=== PATIENT | female | born 1985 | race Caucasian/White ===

== ENCOUNTER 2017-07-11 08:35 | Inpatient (IN) | payer OTHER, SELFPAY ==
[2017-07-11 08:37] VITALS: BMI 31.7
[2017-07-11] MEDS: Lactated Ringers 1,000 ML 50 ML IV ×2 (09:10→17:40)
[2017-07-11] MEDS: Oxytocin 30 units/NS 500 ml 30 UNITS/500 ML IV.SOLN IV (09:30)
[2017-07-11 09:41] LABS: Hematocrit 38.1 % (37-47); Hemoglobin 13.4 g/dl (12.0-15.0); Mean Corp Hgb Conc 35.2 g/gl (32-36); Mean Corpuscular Hgb 32.8 pg (27.0-32.0); Mean Corpuscular Volume 93.2 fL (81-99); Mean Platelet Vol. 11.3 fl (6.2-12.0); Platelet Count 149 K/mm3 (150-450); RBC Distribution Width CV 13.7 % (11.6-14.6); RBC Distribution Width SD 45.3 fl (35.1-43.9); Red Blood Count 4.09 M/mm3 (4.2-5.4); White Blood Count 8.4 K/mm3 (4.4-11.0)
[2017-07-11 09:50] LABS: Scan Indicated on CBC? Y/N NO
--- NOTE | 2017-07-11 12:34 | PCM.PN.BLA ---
Progress Note LABOR PROGRESS NOTE. 40 6/7 wk induction Feeling some UCs. AVSS pitocin at 10 mIU/min EFM 120-130s with accels category I tracing UCs q 1 - 6 mins, most q 3-4 min CX: 2/50/-2 to -3 but vtx well applied to cervix. AROM Clear fluid A/P 40 6/7 wk induction of labor postdates. Continue pitocin and watch progress, descent.
--- NOTE | 2017-07-11 16:48 | PCM.PN.BLA ---
Progress Note Induction 40 6/7 wk EGA Uncomfortable. Wants to wait until 5 cm to see about pain meds. 120-130s qvg variability. Accels category I tracing overall, but intermittent variable decelerations noted. Some with intermittent bulk picker. Some lasting 45 sec or so. UCs q 2-3 mins CX: / high. (needs to rotate) A/P; induction 40 6/7 wk Continue induction. declines pain med for now, but plans to consider at 5 cm.
--- NOTE | 2017-07-11 16:57 | PN_ITS ---
Progress Note Induction 40 6/7 wk EGA Uncomfortable. Wants to wait until 5 cm to see about pain meds. 120-130s qvg variability. Accels category I tracing overall, but intermittent variable decelerations noted. Some with intermittent machine operator hop picker. Some lasting 45 sec or so. UCs q 2-3 mins CX: / high. (needs to rotate) A/P; induction 40 6/7 wk Continue induction. declines pain med for now, but plans to consider at 5 cm.
[2017-07-11] MEDS: Oxytocin 30 units/NS 500 ml 30 UNITS/500 ML IV.SOLN 334 UNITS IV (20:10)
--- NOTE | 2017-07-11 20:18 | PCM.OB.VAG ---
Vaginal Delivery Maternal Presentation: Medically Indicated Induction 40 6/7 wk induction postdates Method of Induction: Pitocin, Amniotomy Medical Reason for Induction: Post term Amniotic Membrane Rupture Type: Artificial Amniotic Fluid Description: Clear Final PATY: 07/05/17 Final PATY Source: US <20 weeks Gestational age: 40 Weeks and 6 Days Date of Procedure: 07/11/17 Pre-Operative Diagnosis: 40 6/7 wk EGA Post-Operative Diagnosis: same Surgery/ Procedure Performed: Spontaneous Vaginal Delivery Type of Anesthesia: Epidural Description of Procedure: of a patricia viable male over intact perineum. Head delivered OA. Op and nares bulb suctioned on prineum. Nuchal cord x two reduced. Shoulders delivered easily. Vigorous infant to maternal abdomen. Spont cry. Cord clamped x two and cut. Routine venous cord gas collected and cord blood for typing. PP exam; 1st deg vaginal laceration, repaired to hemostatic, intact with 3-0 Vicryl No other lacerations noted. Placenta delivered by spont expulsion, expression. 3V cord normal appearing and intact. EBL 300cc [employer] counts correct x two Pt and tolerated delivery well. To recovery, stable condition. Presentation: Vertex, MILADYS Placental Delivery Description: Spontaneous, Expressed Placenta Disposition: [facility] Cord Vessel Description: 3 Vessels Cord Gases drawn per routine: VBG Cord Entanglement: Around neck x 2, loose Drain: Sahu to straight drain Estimated Blood Loss: 300 A gender: Male (1 minute): 8 (5 minute): 9 Episiotomy Description: None Laceration: Vaginal Extension/lac, 1st degree - repaired with single vicryl rapide fig of 8 stitch. No other lacerations. Medications given after delivery: IV Pitocin Complications: None
--- NOTE | 2017-07-11 20:25 | PCM.DCVAG ---
Discharge Diet: No Restrictions Discharge Activity: May Shower, May Take a Tub Bath May resume sexual activity in: 4-6 weeks Additional Activity Instructions:: Nothing in the vagina for 4-6 weeks. You may return to work/school in 6 weeks. Additional Instructions: If you experience any of the following, contact your healthcare provider. Bleeding that soaks a pad every hour for 2 hours Fever 100.4 or higher Unrelieved abdominal pain Problems urinating (including inability to urinate or burning while urinating). Visual changes Severe headache Flu-like symptoms Pain or redness in one of both of your breasts Pain, warmth, tenderness or swelling in your legs, especially the calf area Frequent nausea and vomiting Symptoms of depression or anxiety If you experience any of the following, call 911 or go to the nearest Emergency Room. Chest pain Problems breathing Seizure activity Partial or complete paralysis of a body part, slurred speech, weakness or drooping of the face, or a sudden inability to walk or hold your balance Allergies/Adverse Reactions: Allergies Penicillins Allergy (Verified 02/27/15 02:23) Unknown Medications to take at Discharge Ferrous Sulfate 1 tab PO DAILY 02/27/15 Vits [Prenatabs FA] 1 tablet PO DAILY 02/27/15 Orders to be completed after discharge: Electric breast pump Time Frame: 1 Year, Location: None Selected Please Follow Up With: Mario Garcia MD - [phone] When: Call to make an appointment with your doctor in 6 weeks. Primary Care Physician: Care Physician,No Primary [Primary Care Provider] - Proposed Discharge Date: 07/13/17
--- NOTE | 2017-07-11 20:26 | DCINST_ITS ---
Discharge Diet: No Restrictions Discharge Activity: May Shower, May Take a Tub Bath May resume sexual activity in: 4-6 weeks Additional Activity Instructions:: Nothing in the vagina for 4-6 weeks. You may return to work/school in 6 weeks. Additional Instructions: If you experience any of the following, contact your healthcare provider. * Bleeding that soaks a pad every hour for 2 hours * Fever 100.4 or higher * Unrelieved abdominal pain * Problems urinating (including inability to urinate or burning while urinating) . * Visual changes * Severe headache * Flu-like symptoms * Pain or redness in one of both of your breasts * Pain, warmth, tenderness or swelling in your legs, especially the calf area * Frequent nausea and vomiting * Symptoms of depression or anxiety If you experience any of the following, call 911 or go to the nearest Emergency Room. * Chest pain * Problems breathing * Seizure activity * Partial or complete paralysis of a body part, slurred speech, weakness or drooping of the face, or a sudden inability to walk or hold your balance Allergies/Adverse Reactions: Allergies Penicillins Allergy (Verified 02/27/15 02:23) Unknown Medications to take at Discharge Ferrous Sulfate 1 tab PO DAILY 02/27/15 Vits [Prenatabs FA] 1 tablet PO DAILY 02/27/15 Orders to be completed after discharge: Electric breast pump Time Frame: 1 Year, Location: None Selected Please Follow Up With: Mario Garcia MD - [phone] When: Call to make an appointment with your doctor in 6 weeks. Primary Care Physician: Care Physician,No Primary [Primary Care Provider] - Proposed Discharge Date: 07/13/17
[2017-07-11] MEDS: Oxytocin 30 units/NS 500 ml 30 UNITS/500 ML IV.SOLN 167 UNITS IV (20:40)
[2017-07-12 00:55] VITALS: BP 118/66; PULSE 77; RESP 16; TEMP 36.8
[2017-07-12] MEDS: Ibuprofen 600 MG Tablet PO ×3 (01:01→19:29)
[2017-07-12 03:53] VITALS: BP 113/59; PULSE 72; RESP 16; TEMP 36.5
[2017-07-12] MEDS: Acetaminophen 500 MG Tablet 1000 MG PO ×2 (04:02→13:12)
--- NOTE | 2017-07-12 08:19 | PCM.PN.OB ---
Subjective: PPD#1 Doing well. Relates some pretty severe cramping, denice with nursing. No heavy bleeding or passing large clots. - Physical Exam General: Alert, Oriented x3, Cooperative, No apparent distress HEENT: Atraumatic Neck: Supple Abdomen: Soft - Fundus firm at approx 1-2 cm inferior to umbilicus. NT Neurological: Cranial nerves II-XII grossly intact Psych/Mental Status: Normal Affect Vital Signs Temp Pulse Resp BP 97.7 F L 72 16 113/59 L 07/12/17 03:53 07/12/17 03:53 07/12/17 03:53 07/12/17 03:53 Oxygen Delivery Method Room Air Weight: 83.915 kg Body Mass Index (BMI) 31.7 Intake and Output for Last 24 Hours 07/10/17 07/11/17 07/12/17 23:59 23:59 23:59 Intake Total 2510 / 2510 Output Total 200 / 200 500 / 500 Balance 2310 / 2310 -500 / -500 Laboratory Tests Past 24 Hrs 07/11/17 07/11/17 07/11/17 09:10 09:10 09:10 WBC 8.4 RBC 4.09 L Hgb 13.4 Hct 38.1 MCV 93.2 MCH 32.8 H MCHC 35.2 RDW 13.7 RDW Differential 45.3 H Plt Count 149 L MPV 11.3 Blood Type O NEGATIVE Antibody Screen TNP NEGATIVE Screen Baby's Blood Type Baby's WILLIAM 07/11/17 23:15 WBC RBC Hgb Hct MCV MCH MCHC RDW RDW Differential Plt Count MPV Blood Type Antibody Screen Screen NEGATIVE Baby's Blood Type O POSITIVE Baby's WILLIAM NEGATIVE Assessment/Plan PPD#1 Stable pp. Continue care
[2017-07-12 09:19] VITALS: BP 124/75; PULSE 87; RESP 18; TEMP 36.7
[2017-07-12] MEDS: Prenatal Vits Tablet 1 TABLET PO (11:17)
[2017-07-12 12:15] VITALS: BP 121/69; PULSE 78; RESP 18; TEMP 36.7
[2017-07-12 16:00] VITALS: BP 114/66; PULSE 77; RESP 16; TEMP 36.8
[2017-07-12 19:32] VITALS: BP 124/76; PULSE 90; RESP 18; TEMP 37; O2SAT 97
[2017-07-13 02:00] VITALS: BP 114/67; PULSE 69; RESP 16; TEMP 37.1; O2SAT 96
[2017-07-13] MEDS: Ibuprofen 600 MG Tablet PO (03:58)
[2017-07-13 07:23] VITALS: BP 120/77; PULSE 69; RESP 16; TEMP 36.4; O2SAT 99
--- NOTE | 2017-07-13 08:00 | PCM.PN.OB ---
Subjective: PPD#2 Doing well. No concerns voiced - Physical Exam General: Alert, Oriented x3, Cooperative, No apparent distress HEENT: Atraumatic Neck: Supple Abdomen: Soft - FF NT at umbilicus Psych/Mental Status: Normal Affect Vital Signs Temp Pulse Resp BP Pulse Ox 97.5 F L 69 16 120/77 99 07/13/17 07:23 07/13/17 07:23 07/13/17 07:23 07/13/17 07:23 07/13/17 07:23 Oxygen Delivery Method Room Air Weight: 83.915 kg Body Mass Index (BMI) 31.7 Intake and Output for Last 24 Hours 07/11/17 07/12/17 07/13/17 23:59 23:59 23:59 Intake Total 2510 / 2510 Output Total 200 / 200 1200 / 1200 Balance 2310 / 2310 -1200 / -1200 Assessment/Plan PPD#2 Stable pp. Dischg home RTO in 6 wk for pp check.
[2017-07-13] MEDS: Prenatal Vits Tablet 1 TABLET PO (10:47)
[2017-07-13 13:23] VITALS: BP 111/74; PULSE 65; RESP 16; TEMP 36.7; O2SAT 99
== END 2017-07-13 15:05 | disposition home or self-care (01) | DRG 775 ==
PROVIDERS: Admitting Provider Obstetrics & Gynecology; Visit Provider Obstetrics & Gynecology
DX: O48.0 Post-term pregnancy (principal); O69.81X0 Labor and delivery complicated by cord around neck, without compression, not applicable or unspecified; Z37.0 Single live birth; Z3A.40 40 weeks gestation of pregnancy; O70.0 First degree perineal laceration during delivery
CPT/HCPCS: 59025; 59050; 85027; 85461; 86850; 86900; 90384; 99218; J7120; G0378; J2790